=== PATIENT | male | born 1985 | race African-American/Black ===

== ENCOUNTER 2016-11-13 16:31 | Emergency (ER) | payer SELFPAY ==
[~2016-11-13] VITALS: Ht 175.3 cm; Wt 83.9 kg
[2016-11-13] MEDS ORDERED: DEPA1TAB3 PO (16:41)
[2016-11-13] MEDS ORDERED: CELE40TA PO (16:41)
[2016-11-13] MEDS ORDERED: IPRATROPIUM 0.5MG/ALBUTEROL 2.5MG INH SOL UD 3ML (DUONEB)(J7620) NEB ONE (18:45)
[2016-11-13] MEDS ORDERED: ALBUTEROL 90 MCG/ACT 8GM HFA INHALER INH ONE (18:45)
[2016-11-13] MEDS ORDERED: ALBU17IN INH (19:43)
[2016-11-13 19:49] VITALS: BP 132/72
== END 2016-11-13 19:52 | disposition home or self-care (01) ==
LOC: EDSEX 17:43 → M ED 17:43
DX: J45.901 Unspecified asthma with (acute) exacerbation (principal); F31.9 Bipolar disorder, unspecified; Z88.0 Allergy status to penicillin; Z91.013 Allergy to seafood; Z79.899 Other long term (current) drug therapy